=== PATIENT | male | born 1995 | race Caucasian/White ===

== ENCOUNTER 2024-04-18 09:50 | Emergency (ER) | payer OTHER ==
[~2024-04-18] VITALS: Ht 185.4 cm; Wt 81.8 kg
[2024-04-18] MEDS: rabies vaccine (PCEC)/PF 2.5 unit kit IMVAC ONE (10:59)
[2024-04-18 11:06] VITALS: BP 136/89; PULSE 90; RESP 15; TEMP 98.7; O2SAT 99
== END 2024-04-18 11:08 | disposition home or self-care (01) ==
LOC: ER 09:50
DX: Z20.3 Contact with and (suspected) exposure to rabies (principal)
CPT/HCPCS: 90471; 90675; 99283

== ENCOUNTER 2024-04-20 16:34 | Emergency (ER) | payer OTHER ==
[~2024-04-20] VITALS: Ht 182.9 cm; Wt 81.8 kg
[2024-04-20] MEDS: rabies vaccine (PCEC)/PF 2.5 unit kit IMVAC ONE (17:15)
[2024-04-20 17:22] VITALS: BP 115/46; PULSE 101; RESP 16; TEMP 98; O2SAT 95
== END 2024-04-20 17:31 | disposition home or self-care (01) ==
LOC: ER 16:35
DX: Z20.3 Contact with and (suspected) exposure to rabies (principal); Z23 Encounter for immunization
CPT/HCPCS: 90471; 90675; 99281